=== PATIENT | male | born 1945 | race Caucasian/White ===

== ENCOUNTER 2016-12-08 23:46 | Emergency (ER) | payer MEDICARE, OTHER ==
[~2016-12-08] VITALS: Ht 177.8 cm; Wt 81.5 kg
[~2016-12-08 23:46] MED LIST: ACYC800T PO; ALPR.25 PO; ASPI81 PO; EZET10 PO; FINA5TAB77 PO; LEXA20TA PO; LORTA5 PO; NORV5TAB PO; OMEP20TA39 PO; PLAV75TA PO; RISP1 PO; WELL150T PO
[2016-12-09] VITALS: BP 147/86; PULSE 71; RESP 20; TEMP 97.8; O2SAT 98
[2016-12-09] MEDS ORDERED: ALPR0.25 PO (10:21)
[2016-12-09] MEDS ORDERED: BUPR150T12 PO (10:21)
[2016-12-09] MEDS ORDERED: AMLO5 PO (10:21)
[2016-12-09] MEDS ORDERED: ASPI81CH37 CHEW (10:21)
[2016-12-09] MEDS ORDERED: PLAV75TA29 PO (10:21)
[2016-12-09] MEDS ORDERED: RISP1 PO (10:22)
[2016-12-09] MEDS ORDERED: OMEP20TA PO (10:22)
[2016-12-09] MEDS ORDERED: EZET1TAB8 PO (10:22)
[2016-12-09] MEDS ORDERED: ESCI20TA PO (10:22)
[2016-12-09] MEDS ORDERED: PROS5TAB PO (10:22)
== END 2016-12-09 01:36 | disposition left against medical advice (07) ==
LOC: PHED 23:46
DX: M25.522 Pain in left elbow (principal)
CPT/HCPCS: 99281

== ENCOUNTER 2016-12-09 09:50 | Emergency (ER) | payer MEDICARE, OTHER ==
[~2016-12-09] VITALS: Ht 177.8 cm; Wt 81.1 kg
[2016-12-09 10:02] VITALS: BP 112/84; PULSE 102; RESP 18; TEMP 97.7; O2SAT 98
[2016-12-09] MEDS ORDERED: BUPR150T12 PO (10:21)
[2016-12-09] MEDS ORDERED: ALPR0.25 PO (10:21)
[2016-12-09] MEDS ORDERED: AMLO5 PO (10:21)
[2016-12-09] MEDS ORDERED: PLAV75TA29 PO (10:21)
[2016-12-09] MEDS ORDERED: ASPI81CH37 CHEW (10:21)
[2016-12-09] MEDS ORDERED: EZET1TAB8 PO (10:22)
[2016-12-09] MEDS ORDERED: PROS5TAB PO (10:22)
[2016-12-09] MEDS ORDERED: RISP1 PO (10:22)
[2016-12-09] MEDS ORDERED: OMEP20TA PO (10:22)
[2016-12-09] MEDS ORDERED: ESCI20TA PO (10:22)
--- NOTE | 2016-12-09 10:41 | PD ---
HPI Chief Complaint: Skin Problem Time Seen by Provider: 10:36 Travel History International Travel<30 days: No Contact w/Intl Traveler<30days: No Traveled to known affect area: No History of Present Illness HPI 71-year-old male with history of CAD status post CABG, currently on Plavix, presents to the ER today because he states that he came from [place] yesterday and fell while on the escalator at the airport after lady tripped and fell into him, has a skin tear to the right elbow, try to get seen last night but the ER was too crowded and came in today. He denies any other injuries, head injury, loss of consciousness, or any other issues. He states that the area is still bleeding a small amounts. Modifying Factors: None Associated Signs & Symptoms: Fall, right elbow skin tear Risk Factors: None PFSH Past Medical History Hx Anticoagulant Therapy: Yes Anxiety: Yes Depression: Yes Heart Rhythm Problems: No Cancer: No Cardiac Catheterization: Yes Cardiovascular Problems: Yes (CABG) High Cholesterol: Yes Chest Pain: No Congestive Heart Failure: No Coronary Artery Disease: Yes Diabetes: No Diminished Hearing: Yes (tinnitus) Endocrine: No Gastrointestinal Disorders: No Genitourinary: Yes Hypertension: Yes Immune Disorder: No Implanted Vascular Access Dvce: No Kidney Stones: Yes Musculoskeletal: No Neurologic: No Psychiatric: No Reproductive: No Respiratory: No Sleep Apnea: Yes Tetanus Vaccination: > 5 Years Influenza Vaccination: Yes Past Surgical History Abdominal Surgery: Yes (gallbladder 2009) Cardiac Surgery: Yes (CABG x3 2010) Cholecystectomy: Yes Coronary Artery Bypass Graft: Yes Coronary Stent: Yes Neurologic Surgery: No Other Surgery: Yes Family History Family Myocardial Infarction: Yes Social History Alcohol Use: No Tobacco Use: No (former) Substance Use: No Allergies-Medications (Allergen,Severity, Reaction): Coded Allergies: Atenolol (Verified Allergy, Severe, weakness, 12/09/16) Beta Blockers (Verified Allergy, Mild, TIRED, 12/09/16) PT STATES HIS DOCTORS SAID NO BETA BLOCKERS Effient (Verified Allergy, Mild, TIRED, 12/09/16) Venlafaxine (Verified Allergy, Mild, TIRED, 12/09/16) Zocor (Verified Allergy, Mild, Joint Pain, 12/09/16) Reported Meds & Prescriptions Reported Meds & Active Scripts Active Reported Risperdal (Risperidone) 1 Mg Tab 1 Mg PO DAILY Omeprazole 20 Mg Tab 20 Mg PO 3XWEEK Proscar (Finasteride) 5 Mg Tab 5 Mg PO DAILY Do not crush. Ezetimibe 10 Mg Tab 5 Mg PO DAILY Escitalopram (Escitalopram Oxalate) 20 Mg Tab 20 Mg PO DAILY Bupropion Sr 12 HR (Bupropion ER 12 HR (Smoking Deterrent)) 150 Mg Tab 150 Mg PO DAILY Take 1 tablet daily x 3 days then twice daily thereafter. Alprazolam 0.25 Mg Tab 0.25 Mg PO DAILY PRN Plavix (Clopidogrel Bisulfate) 75 Mg Tab 75 Mg PO DAILY Norvasc (Amlodipine Besylate) 5 Mg Tab 5 Mg PO DAILY Aspirin Low Dose (Aspirin) 81 Mg Chew 81 Mg CHEW DAILY Review of Systems Except as stated in HPI: all other systems reviewed are Neg Physical Exam Narrative GENERAL: Well-nourished, well-developed pleasant elderly white male patient in no acute distress. Awake, alert, oriented 3. SKIN: Focused skin assessment warm/dry. HEAD: Normocephalic. EYES: No scleral icterus. No injection or drainage. NECK: Supple, trachea midline. CARDIOVASCULAR: Regular rate and rhythm without murmurs, gallops, or rubs. RESPIRATORY: Breath sounds equal bilaterally. No accessory muscle use. GASTROINTESTINAL: Abdomen soft, non-tender, nondistended. MUSCULOSKELETAL: No cyanosis, or edema. BACK: Nontender without obvious deformity. No CVA tenderness. Right elbow: There are 21 cm skin tears to the right elbow with small amount of bleeding. Nontender to palpation. Nontender range of motion at the elbow. Neurovascularly intact. No obvious bony deformities. Data Data Last Documented VS Vital Signs Date Time Temp Pulse Resp B/P Pulse Ox O2 Delivery O2 Flow Rate FiO2 12/09/16 10:17 102 16 12/09/16 10:02 97.7 112/84 98 MDM Medical Decision Making Medical Screen Exam Complete: Yes Emergency Medical Condition: Yes Medical Record Reviewed: Yes Differential Diagnosis Fall on elbow, skin tear Narrative Course Patient has skin tears which are minor and does not require laceration repair. He is bleeding a small amount but not significantly at this point. He has cleaned up the area and has already had triple antibiotic placed in the area since yesterday. There are no signs of infection. At this point, I do not suspect underlying fracture or any other Injuries. Patient is ambulatory and doing well. I do not see any signs of emergent medical issues in this case. He should follow-up as needed or primary care physician. Would care instructions given. Return for any signs of infection or new issues as needed. Diagnosis Primary Impression: Skin tear of right elbow without complication Disposition: [facility]GO-ED USE ONLY Condition: Stable Josefa Patel MD Dec 09, 2016 10:40
== END 2016-12-09 11:20 | disposition left against medical advice (07) ==
LOC: PHED 09:50
DX: S51.011A Laceration without foreign body of right elbow, initial encounter (principal); Z79.01 Long term (current) use of anticoagulants; Z95.1 Presence of aortocoronary bypass graft; I10 Essential (primary) hypertension; I25.10 Atherosclerotic heart disease of native coronary artery without angina pectoris; W01.0XXA Fall on same level from slipping, tripping and stumbling without subsequent striking against object, initial encounter
CPT/HCPCS: 99281

== ENCOUNTER 2016-12-31 13:19 | Emergency (ER) | payer MEDICARE, OTHER ==
[~2016-12-31] VITALS: Ht 177.8 cm; Wt 75.0 kg
[~2016-12-31 13:19] MED LIST changes: -ACYC800T PO; -ALPR.25 PO; +ALPR0.25 PO; +AMLO5 PO; -ASPI81 PO; +ASPI81CH37 CHEW; +BUPR150T12 PO; +ESCI20TA PO; -EZET10 PO; +EZET1TAB8 PO; -FINA5TAB77 PO; -LEXA20TA PO; -LORTA5 PO; -NORV5TAB PO; +OMEP20TA PO; -OMEP20TA39 PO; -PLAV75TA PO; +PLAV75TA29 PO; +PROS5TAB PO; -WELL150T PO
[2016-12-31 13:21] VITALS: BP 144/64; PULSE 76; RESP 18; TEMP 98.4; O2SAT 97
== END 2016-12-31 14:48 | disposition left against medical advice (07) ==
LOC: NED 13:19
DX: K92.9 Disease of digestive system, unspecified (principal)
CPT/HCPCS: 99281